=== PATIENT | male | born 1940 | race Caucasian/White ===

== ENCOUNTER → 2016-05-28 | Outpatient (CLI) | payer OTHER ==
[~2016-05-28] VITALS: Ht 165.7 cm; Wt 68.2 kg
[~2016-05-28] MED LIST: CALTRATE PLUS1 EACH PO; CENTRUM SILVER1 EAC3 PO; FUROSEMIDE20 MG PO; IRBESARTAN75 MG PO; LANSOPRAZOLE30 MG PO; LO-DOSE ASPIRIN81 M2 PO; METOPROLOL TART50 MG PO; SIMVASTATIN40 MG PO; TRAMADOL HCL50 MG PO; VITAMIN D32000 UNI1 PO
== END | disposition home or self-care (01) ==
LOC: AMB 07:32
DX: K31.7 Polyp of stomach and duodenum (principal); R63.4 Abnormal weight loss; Z85.46 Personal history of malignant neoplasm of prostate; I10 Essential (primary) hypertension; Z87.891 Personal history of nicotine dependence; K21.9 Gastro-esophageal reflux disease without esophagitis; Z79.82 Long term (current) use of aspirin; Z88.8 Allergy status to other drugs, medicaments and biological substances
CPT/HCPCS: 88305; 88342 TC; C1726; J2405; J2710; J3010

== ENCOUNTER → 2016-07-10 | Outpatient (CLI) | payer OTHER ==
[~2016-07-10] VITALS: Ht 165.1 cm; Wt 67.1 kg
[~2016-07-10] MED LIST changes: +MAGNESIUM250 MG PO; +METOPROLOL SUCC25 MG PO; +MIRTAZAPINE15 MG PO; +RECLAST5 MG/100 M IV
[2016-07-10 13:40] LABS: HEMATOCRIT 39.6 % (38.0-50.0); MCH 32.1 PG (29.0-34.0); MCHC 33.3 G/DL (30.0-36.0); MCV 96.4 FL (86-99); PLATELET COUNT 189 K/uL (156-360); RBC DIS.WIDTH-CV 13.2 % (11.8-14.6); RBC DIS.WIDTH-SD 46.8 % (39-53); RED BLOOD COUNT 4.11 M/uL (4.00-5.50); WHITE BLOOD COUNT 6.5 K/uL (4.1-10.2)
[2016-07-10 14:00] LABS: PROTHROMBIN TIME 10.2 (9.2-11.2); PTT 28.3 (25-32)
== END | disposition home or self-care (01) ==
LOC: AMB 13:01
PROVIDERS: Internal Medicine Pulmonary Disease
DX: R91.8 Other nonspecific abnormal finding of lung field (principal); R63.4 Abnormal weight loss; Z85.46 Personal history of malignant neoplasm of prostate; Z87.891 Personal history of nicotine dependence; Z92.3 Personal history of irradiation; K21.9 Gastro-esophageal reflux disease without esophagitis; R42 Dizziness and giddiness; I10 Essential (primary) hypertension; Z79.82 Long term (current) use of aspirin; Z88.1 Allergy status to other antibiotic agents; Z88.8 Allergy status to other drugs, medicaments and biological substances; Z82.49 Family history of ischemic heart disease and other diseases of the circulatory system
CPT/HCPCS: 85027; 85610; 85730; 87070; 87116; 87205; 87206; 87278; 88108; J2175; J2250; J2310; J2550; J3010